=== PATIENT | female | born 1995 | race Caucasian/White ===

== ENCOUNTER 2016-08-24 06:51 | Emergency (ER) | payer BC ==
[~2016-08-24] VITALS: Ht 154.9 cm; Wt 49.9 kg
[2016-08-24] MEDS ORDERED: BUPROPION XL300 MG ORAL (07:02)
[2016-08-24] MEDS ORDERED: ROBAXIN500 MG PO (07:02)
[2016-08-24] MEDS ORDERED: ATIVAN0.5 MG ORAL (07:02)
[2016-08-24] MEDS ORDERED: NALTREXONE HCL50 MG PO (07:02)
[2016-08-24] MEDS ORDERED: KEPPRA500 MG ORAL (07:02)
[2016-08-24] MEDS ORDERED: ZITHROMAX250 MG ORAL (07:13)
[2016-08-24] MEDS ORDERED: CARAFATE1 G1 ORAL (07:13)
[2016-08-24] MEDS ORDERED: Lidocaine 2% Visc 15ml soln ORAL ONE (07:15)
--- NOTE | 2016-08-24 07:29 | Emergency Room Report ---
History of Present Illness General Chief Complaint: Sore Throat Source: Patient Present Illness HPI Patient is a 21-year-old female presented after having increased sore throat. Patient had symptoms for approximately one week initially and subsequently had worsening of symptoms. She had not been vomiting. She reported having a intermittent nonproductive cough. She denies any nasal congestion or pain. Patient states his multiple episodes of strep throat in the past. She had prior tonsillectomy. The patient denied any fever. She reported having some pain to her left-sided neck. She denied being . Allergies: Coded Allergies: No Known Allergies (Unverified , 08/24/16) Patient History Past Medical History: see triage record Past Surgical History: other - cervical fusion/laminectomy Last Menstrual Period: a week ago Reviewed Nursing Documentation: PMH: Agreed, PSxH: Agreed Nursing Documentation-PMH History Of Psychiatric Problem: Yes - ANXIETY Hx Neurological Problems: Yes - SPINAL INJURY/SPINAL FUSION IN JULY 2015 Review of Systems All Other Systems: negative except mentioned in HPI Physical Exam Vital Signs Date Time Temp Pulse Resp B/P Pulse Ox O2 Delivery O2 Flow Rate FiO2 08/24/16 06:53 98.1 90 16 108/68 100 Room Air General Appearance: well appearing, no apparent distress, alert, GCS 15 Head: normocephalic, atraumatic ENT: hearing grossly normal, normal voice Neck: full range of motion, supple, tender lateral - lymphadenopathy Respiratory: chest non-tender, lungs clear, no respiratory distress, speaking full sentences Cardiovascular #1: normal peripheral pulses, regular rate, rhythm, no edema Gastrointestinal: normal inspection, normal bowel sounds, soft Musculoskeletal: normal inspection, no calf tenderness Neurologic: normal inspection, alert, oriented x3, responsive, motor strength/ tone normal, normal gait Psychiatric: normal inspection, mood/affect normal Skin: no rash Medical Decision Making Diagnostic Impression: Primary Impression: Pharyngitis ER Course Patient presented for sore throat.Differential diagnosis included but was not limited to meningitis, exudative tonsillitis, retropharyngeal abscess, epiglottitis, strep pharyngitis. Patient's benign exam and does not appear to require any further imaging or laboratory testing at this time. Patient had exam consistent with a pharyngitis. Patient will be given a prescription for azithromycin. The patient is advised that sore throat cough may persist. She is advised to followup with her primary care physician in the next few days for recheck. The patient is advised to return if she began having high fever or increased difficulty swallowing or other concerns. Last Vital Signs Date Time Temp Pulse Resp B/P Pulse Ox O2 Delivery O2 Flow Rate FiO2 08/24/16 06:53 98.1 90 16 108/68 100 Room Air Status: improved Disposition: HOME, SELF-CARE Condition: Stable Scripts Azithromycin* (ZITHROMAX*) 250 Mg Tablet 250 MG ORAL DAILY, #6 TAB 0 Refills Take two tables once daily for 1 day, then one tablet once daily for 4 days. Prov: Edgardo Carroll 08/24/16 Sucralfate* (CARAFATE*) 1 Gm Tablet 1 GM ORAL FOUR TIMES A DAY, #30 TAB Prov: Edgardo Carroll 08/24/16 Referrals: NON PHYSICIAN (PCP) Patient Instructions: Sore Throat Edgardo Carroll Aug 24, 2016 07:29
[2016-08-24 07:40] VITALS: BP 111/76
== END 2016-08-24 07:40 | disposition home or self-care (01) ==
LOC: EMR 07:20
DX: J02.9 Acute pharyngitis, unspecified (principal); R05 Cough; M54.2 Cervicalgia; Z86.59 Personal history of other mental and behavioral disorders
CPT/HCPCS: 99284